=== PATIENT | male | born 1985 | race Two or more races ===

== ENCOUNTER 2019-05-27 23:12 | Emergency (ER) | payer OTHER ==
[~2019-05-27] VITALS: Ht 167.6 cm; Wt 90.0 kg
[2019-05-27 23:13] VITALS: BP 145/94
[2019-05-28] MEDS ORDERED: DOXY100C37 PO (00:28)
[2019-05-28] MEDS ORDERED: PYRI1TAB5 PO (00:29)
[2019-05-28] MEDS ORDERED: LIDOCAINE 1% SDV 5 ML VIAL DILUENT ONE (00:30)
[2019-05-28] MEDS ORDERED: BACTRIM 160MG/800MG DS TAB PO ONE (00:30)
[2019-05-28] MEDS ORDERED: DOXYCYCLINE HYCLATE 100 MG TAB PO ONE (00:30)
[2019-05-28] MEDS ORDERED: cefTRIAXone SOD 250 MG VIAL (J0696) IM ONE (00:30)
[2019-05-28 01:14] LABS: CHLAMYDIA DNA AMPLIFICATION NEGATIVE (NEGATIVE); GC DNA AMPLIFICATION NEGATIVE (NEGATIVE)
== END 2019-05-28 00:57 | disposition home or self-care (01) ==
LOC: M ED 23:12
DX: R30.0 Dysuria (principal); R35.0 Frequency of micturition; Z87.442 Personal history of urinary calculi
CPT/HCPCS: 81001; 87491; 87591; 96372; 99283; J0696

== ENCOUNTER 2019-07-08 12:59 | Emergency (ER) | payer OTHER ==
[~2019-07-08] VITALS: Ht 167.6 cm; Wt 92.8 kg
[2019-07-08 12:59] VITALS: BP 136/91
[~2019-07-08 12:59] MED LIST: DOXY100C37 PO; PYRI1TAB5 PO
[2019-07-08] MEDS ORDERED: KEFL500C17 PO (14:42)
[2019-07-08] MEDS ORDERED: CEPHALEXIN 500 MG CAP PO ONE (14:45)
== END 2019-07-08 14:48 | disposition home or self-care (01) ==
LOC: M ED 12:59
DX: L02.01 Cutaneous abscess of face (principal)